=== PATIENT | female | born 1985 | race Two or more races ===

== ENCOUNTER 2020-10-22 17:33 | Emergency (ER) | payer MEDICAID, OTHER ==
[~2020-10-22] VITALS: Ht 160 cm; Wt 73.3 kg
--- NOTE | 2020-10-22 17:56 | NUR ---
PATIENT AMBULATED TO BATHROOM WITH STEADY GAIT TO LEAVE URINE SAMPLE.
--- NOTE | 2020-10-22 17:58 | NUR ---
PATIENT WALKED BACK FROM TRIAGE WITH CHIEF C/O ABD PAIN. PATIENT REPORTS PAIN HAS BEEN X2 DAYS, AND REPORTS PAINFUL URINATION. NADN, VSS, ACCOMPANIED BY SIGNIFICANT OTHER, CALL LIGHT WITHIN REACH.
[2020-10-22 18:27] LABS: HCG UR SG 1.018 (1.003-1.030); MICROSCOPIC AUTO
[2020-10-22 18:54] VITALS: BP 102/53
--- NOTE | 2020-10-22 19:00 | NUR ---
Patient given discharge instructions and prescriptions and they have confirmed that they understand the instructions. Patient stable and ambulatory with steady gait from ED with significant other.
== END 2020-10-22 19:01 | disposition home or self-care (01) ==
LOC: ED 18:40
DX: N30.00 Acute cystitis without hematuria (principal)
CPT/HCPCS: 81001; 81025; 87077; 87086; 87186; 99283